=== PATIENT | female | born 1960 | race Caucasian/White ===

== ENCOUNTER → 2017-09-28 06:08 | Outpatient (CLI) | payer MEDICAID, SELFPAY ==
[2017-09-28 06:48] LABS: Absolute Lymphocyte Count 2.14 X10^3/ul (0.83-4.51); Absolute Neutrophil Count 4.5 X10^3/uL (2.0-7.7); Basophil# 0.06 X10^3/uL; Basophil% 0.8 % (0-1); Eosinophil# 0.43 X10^3/uL; Eosinophils% 5.6 % (0-5); Hemoglobin 14.1 g/dl (12.0-15.0); Lymphocyte # 2.14 X10^3/ul (4.0); Lymphocyte % 27.9 % (19-41); Mean Corp Hgb Conc 33.6 g/gl (32-36); Mean Corpuscular Hgb 30.3 pg (27.0-32.0); Mean Corpuscular Volume 90.3 fL (81-99); Mean Platelet Vol. 9.8 fl (6.2-12.0); Monocyte# 0.52 X10^3/uL; Monocyte% 6.8 % (0-10); Neutrophil % 58.5 % (47-70); Platelet Count 302 K/mm3 (150-450); RBC Distribution Width CV 13.1 % (11.6-14.6); Red Blood Count 4.65 M/mm3 (4.2-5.4); White Blood Count 7.7 K/mm3 (4.4-11.0)
[2017-09-28 06:52] LABS: POSITIVE COUNT NO; POSITIVE DIFFERENTIAL NO; POSITIVE MORPHOLOGY NO
[2017-09-28 07:09] LABS: AST(SGOT) 25 U/L (15-37); Alanine Aminotransfer ALT/SGPT 23 U/L (13-56); Albumin, Serum 3.7 g/dL (3.2-5.0); Alkaline Phosphatase 95 U/L (45-117); Anion Gap 8 (5-15); BUN 26 mg/dL (7-18); BUN/Creat Ratio 33.2 RATIO (10-20); Calcium,Total 9.4 mg/dL (8.5-10.1); Chloride 109 mmol/L (98-107); Cholesterol 167 mg/dL (200); Creatinine, Serum 0.78 mg/dL (0.55-1.02); EST Glomerular Filtration Rate 80 mL/min (>60); Est Glom Filt Rate - Afr Amer 97 mL/min (>60); Globulin 3.8 g/dL (2.2-4.2); Glucose 96 mg/dL (74-106); High Density Lipoprotein 48 mg/dL; Potassium 4.1 mmol/L (3.5-5.1); Protein, Total 7.5 g/dL (6.4-8.2); Sodium Level 141 mmol/L (136-145); Triglycerides 119 mg/dL; Very Low Density Lipoprotein 24 mg/dL (5-40)
[2017-09-28 13:48] LABS: Color, Urine Yellow (Yellow); Glucose, Dipstick Normal (Normal); Ketone-Dipstick Negative (Negative); Leukocyte Esterase-Dipstick Negative /ul (Negative); Nitrite-Dipstick Negative (Negative); Occult Blood-Urine Negative /ul (Negative); Protein-Dipstick Negative (Negative); Urine Bilirubin Dipstick Negative (Negative); Urine Clarity Cloudy (Clear); Urine Urobilinogen Normal (Normal)
== END ==
PROVIDERS: Family Provider Family Medicine; PCP Family Medicine; Visit Provider Family Medicine
DX: Z00.00 Encounter for general adult medical examination without abnormal findings (principal); E78.5 Hyperlipidemia, unspecified
CPT/HCPCS: 36415; 80053; 80061; 81002; 85025

== ENCOUNTER → 2017-10-04 12:06 | Outpatient (CLI) | payer MEDICAID, SELFPAY ==
--- NOTE | 2017-10-04 12:09 | BI_ITS ---
MAMMOGRAPHY - BILATERAL SCREENING REASON FOR EXAM: Female, 57 years old. Routine annual screening examination. PERTINENT HISTORY: Personal history of breast cancer. Prior right lumpectomy with the radiation and chemotherapy. TECHNIQUE: Digital bilateral breast rima (3D mammographic acquisition) in the CC and MLO projections. 2-D mediolateral oblique (MLO) and craniocaudad (CC) views of both breasts were obtained. CAD: Full Field Digital Mammography with Computer Added Detection was performed. COMPARISON: Comparison is made with prior examination September 30, 2016. FINDINGS: Breast Composition: There are scattered areas of fibroglandular density. There are no dominant masses or suspicious calcifications. The patient is status post right lumpectomy with deformity and architectural distortion of the mid medial portion of the right breast. This is unchanged. Calcifications are seen at the operative site most likely representing postoperative dystrophic calcification. No other significant abnormalities are identified. BI/SCREENING MAMM (CAD), BILAT IMPRESSION: Stable bilateral screening mammogram. Yearly follow-up mammogram recommended. (A) ASSESSMENT CATEGORY: BIRADS Category 2: Benign. A letter regarding these results will be sent to the patient by the facility within 30 days. Approximately 10% of breast cancers are not detected by mammography. A normal mammogram should not delay biopsy of a clinically suspicious abnormality. [id number] Electronically Signed: Michael Johnson MD at 14:28 EDT Tel [phone], Service support ,
== END ==
PROVIDERS: Family Provider Family Medicine; PCP Family Medicine; Visit Provider Family Medicine
DX: Z12.31 Encounter for screening mammogram for malignant neoplasm of breast (principal); Z85.3 Personal history of malignant neoplasm of breast
CPT/HCPCS: 77063; 77067

== ENCOUNTER → 2018-05-24 07:27 | Outpatient (CLI) | payer MEDICAID, SELFPAY ==
[2018-05-24 08:33] LABS: AST(SGOT) 26 U/L (15-37); Alanine Aminotransfer ALT/SGPT 24 U/L (13-56); Albumin, Serum 3.8 g/dL (3.2-5.0); Alkaline Phosphatase 84 U/L (45-117); Bilirubin, Direct < 0.05 mg/dL (0.00-0.30); Cholesterol 169 mg/dL (200); Globulin 3.7 g/dL (2.2-4.2); High Density Lipoprotein 55 mg/dL; Protein, Total 7.5 g/dL (6.4-8.2); Triglycerides 58 mg/dL; Very Low Density Lipoprotein 12 mg/dL (5-40)
== END ==
PROVIDERS: Family Provider Family Medicine; PCP Family Medicine; Referring Provider Family Medicine; Visit Provider Family Medicine
DX: E78.5 Hyperlipidemia, unspecified (principal)
CPT/HCPCS: 36415; 80061; 80076

== ENCOUNTER → 2018-10-05 14:40 | Outpatient (CLI) | payer MEDICAID, SELFPAY ==
--- NOTE | 2018-10-05 14:44 | BI_ITS ---
MAMMOGRAPHY - BILATERAL SCREENING REASON FOR EXAM: Female, 58 years old. Routine annual screening examination. PERTINENT HISTORY: Personal history of breast cancer. History of prior right lumpectomy with chemotherapy and radiation therapy. TECHNIQUE: Digital bilateral breast carin (3D mammographic acquisition) in the CC and MLO projections. 2-D mediolateral oblique (MLO) and craniocaudad (CC) views of both breasts were obtained. CAD: Full Field Digital Mammography with Computer Added Detection was performed. COMPARISON: Comparison is made with prior study dated October 04, 2017 and October 23, 2012. FINDINGS: Breast Composition: There are scattered areas of fibroglandular density. There are no dominant masses or suspicious calcifications. The patient is status post lumpectomy in the upper medial aspect of the right breast with resultant deformity and architectural distortion and microcalcifications at the biopsy site. These findings are unchanged. No other significant abnormalities are identified. There has been no significant change since the prior study. BI/SCREEN MAMM (CAD) W/CARIN BILAT IMPRESSION: Stable bilateral screening mammogram. Yearly follow-up mammogram recommended. (A) ASSESSMENT CATEGORY: BIRADS Category 2: Benign. A letter regarding these results will be sent to the patient by the facility within 30 days. Approximately 10% of breast cancers are not detected by mammography. A normal mammogram should not delay biopsy of a clinically suspicious abnormality. [id number] Electronically Signed: Michael Johnson, at 8:25 EDT , Service support ,
== END ==
PROVIDERS: Family Provider Family Medicine; PCP Family Medicine; Referring Provider Family Medicine; Visit Provider Family Medicine
DX: Z12.31 Encounter for screening mammogram for malignant neoplasm of breast (principal); Z85.3 Personal history of malignant neoplasm of breast
CPT/HCPCS: 77063; 77067

== ENCOUNTER → 2018-11-21 08:40 | Outpatient (CLI) | payer OTHER, SELFPAY ==
[2018-11-21 09:15] LABS: Basophil# 0.11 X10^3/uL; Basophil% 1.6 % (0-1); Eosinophils% 4.4 % (0-5); Hematocrit 44.1 % (37-47); Hemoglobin 14.5 g/dL (12.0-15.0); Lymphocyte % 27.7 % (19-41); Mean Corp Hgb Conc 32.9 g/dL (32-36); Mean Corpuscular Hgb 29.7 pg (27.0-32.0); Mean Corpuscular Volume 90.2 fL (81-99); Mean Platelet Vol. 9.7 fl (6.2-12.0); Monocyte# 0.57 X10^3/uL; Monocyte% 8.3 % (0-10); NRBC Flagged by Analyzer 0 % (0-5); Neutrophil # 3.96 X10^3/uL (2.7-7.7); Neutrophil % 57.6 % (47-70); Platelet Count 300 K/mm3 (150-450); RBC Distribution Width CV 12.4 % (11.6-14.6); RBC Distribution Width SD 41.2 fl (35.1-43.9); Red Blood Count 4.89 M/mm3 (4.2-5.4); White Blood Count 6.9 K/mm3 (4.4-11.0)
[2018-11-21 09:23] LABS: Color, Urine Yellow (Yellow); Glucose, Dipstick Normal (Normal); Ketone-Dipstick Negative (Negative); Leukocyte Esterase-Dipstick Negative /ul (Negative); Nitrite-Dipstick Positive (Negative); Occult Blood-Urine Negative /ul (Negative); Protein-Dipstick Negative (Negative); Urine Bilirubin Dipstick Negative (Negative); Urine Clarity Clear (Clear); Urine Urobilinogen Normal (Normal); Urine pH 6.5 (5.0 - 8.0)
[2018-11-21 09:46] LABS: ALB/GLOB Ratio 0.9 RATIO (0.9-2.4); AST(SGOT) 22 U/L (15-37); Alanine Aminotransfer ALT/SGPT 22 U/L (13-56); Albumin, Serum 3.7 g/dL (3.2-5.0); Alkaline Phosphatase 89 U/L (45-117); Anion Gap 5 (5-15); BUN 27 mg/dL (7-18); BUN/Creat Ratio 32.3 RATIO (10-20); Calcium,Total 9.1 mg/dL (8.5-10.1); Chloride 108 mmol/L (98-107); Cholesterol 192 mg/dL (200); Creatinine, Serum 0.84 mg/dL (0.55-1.02); EST Glomerular Filtration Rate 74 mL/min (>60); Est Glom Filt Rate - Afr Amer 90 mL/min (>60); Glucose 102 mg/dL (74-106); High Density Lipoprotein 56 mg/dL; Potassium 4.2 mmol/L (3.5-5.1); Protein, Total 7.7 g/dL (6.4-8.2); Sodium Level 138 mmol/L (136-145); Triglycerides 87 mg/dL; Very Low Density Lipoprotein 17 mg/dL (5-40)
== END ==
PROVIDERS: Family Provider Family Medicine; PCP Family Medicine; Visit Provider Family Medicine
DX: Z00.00 Encounter for general adult medical examination without abnormal findings (principal); E78.5 Hyperlipidemia, unspecified
CPT/HCPCS: 36415; 80053; 80061; 81002; 85025

== ENCOUNTER → 2019-05-22 10:46 | Outpatient (CLI) | payer OTHER, SELFPAY ==
[2019-05-22 11:55] LABS: AST(SGOT) 24 U/L (15-37); Alanine Aminotransfer ALT/SGPT 22 U/L (13-56); Albumin, Serum 3.6 g/dL (3.2-5.0); Alkaline Phosphatase 85 U/L (45-117); Bilirubin, Direct 0.06 mg/dL (0.00-0.30); Cholesterol 161 mg/dL (200); Globulin 4.1 g/dL (2.2-4.2); High Density Lipoprotein 56 mg/dL; Protein, Total 7.7 g/dL (6.4-8.2); Triglycerides 73 mg/dL; Very Low Density Lipoprotein 15 mg/dL (5-40)
== END ==
PROVIDERS: PCP Family Medicine; Referring Provider Family Medicine; Visit Provider Family Medicine
DX: E78.5 Hyperlipidemia, unspecified (principal)
CPT/HCPCS: 36415; 80061; 80076

== ENCOUNTER → 2019-10-30 12:26 | Outpatient (CLI) | payer OTHER, SELFPAY ==
--- NOTE | 2019-10-30 12:28 | BI_ITS ---
MAMMOGRAPHY - BILATERAL SCREENING REASON FOR EXAM: Female, 59 years old. Routine annual screening examination. PERTINENT HISTORY: Personal history of breast cancer. Prior right lumpectomy with radiation and chemotherapy. Aunt with breast cancer. TECHNIQUE: Digital bilateral breast carin (3D mammographic acquisition) in the CC and MLO projections. 2-D mediolateral oblique (MLO) and craniocaudad (CC) views of both breasts were obtained. CAD: Full Field Digital Mammography with Computer Added Detection was performed. COMPARISON: Comparison is made with prior examination 10/05/2018 and 10/04/2017. FINDINGS: Breast Composition: There are scattered areas of fibroglandular density. There are no dominant masses or suspicious calcifications. Stable deformity of the right breast with macrocalcifications skin thickening. No other significant abnormalities are identified. There has been no significant change since the prior study. BI/SCREEN MAMM (CAD) W/CARIN BILAT IMPRESSION: Stable bilateral screening mammogram. Yearly follow-up mammogram recommended. (A) ASSESSMENT CATEGORY: BIRADS Category 2: Benign. A letter regarding these results will be sent to the patient by the facility within 30 days. Approximately 10% of breast cancers are not detected by mammography. A normal mammogram should not delay biopsy of a clinically suspicious abnormality. [id number] Electronically Signed: Michael Johnson, at 14:41 EDT , Service support ,
== END ==
PROVIDERS: PCP Family Medicine; Referring Provider Family Medicine; Visit Provider Family Medicine
DX: Z12.31 Encounter for screening mammogram for malignant neoplasm of breast (principal)
CPT/HCPCS: 77063; 77067

== ENCOUNTER → 2020-01-07 06:53 | Outpatient (CLI) | payer OTHER, SELFPAY ==
[2020-01-07 07:20] LABS: Absolute Lymphocyte Count 1.86 X10^3/uL (0.83-4.51); Absolute Neutrophil Count 3.6 X10^3/uL (2.0-7.7); Basophil# 0.09 X10^3/uL; Basophil% 1.4 % (0-1); Eosinophil# 0.25 X10^3/uL; Hematocrit 43.1 % (37-47); Hemoglobin 13.8 g/dL (12.0-15.0); Lymphocyte # 1.86 X10^3/ul (4.0); Lymphocyte % 29.7 % (19-41); Mean Corpuscular Hgb 28.9 pg (27.0-32.0); Mean Corpuscular Volume 90.4 fL (81-99); Mean Platelet Vol. 9.4 fl (6.2-12.0); Monocyte# 0.48 X10^3/uL; Monocyte% 7.7 % (0-10); NRBC Flagged by Analyzer 0 % (0-5); Neutrophil # 3.57 X10^3/uL (2.7-7.7); Platelet Count 292 K/mm3 (150-450); RBC Distribution Width CV 12.5 % (11.6-14.6); RBC Distribution Width SD 41.8 fl (35.1-43.9); Red Blood Count 4.77 M/mm3 (4.2-5.4); White Blood Count 6.3 K/mm3 (4.4-11.0)
[2020-01-07 07:41] LABS: Color, Urine Yellow (Yellow); Glucose, Dipstick Normal (Normal); Ketone-Dipstick Negative (Negative); Leukocyte Esterase-Dipstick 100 /ul (Negative); Nitrite-Dipstick Negative (Negative); Occult Blood-Urine Negative /ul (Negative); Protein-Dipstick 15 mg/dl (Negative); Urine Bilirubin Dipstick Negative (Negative); Urine Clarity Sl. Cloudy (Clear); Urine Urobilinogen Normal (Normal); Urine pH 6.5 (5.0 - 8.0)
[2020-01-07 07:55] LABS: ALB/GLOB Ratio 0.9 RATIO (0.9-2.4); AST(SGOT) 23 U/L (15-37); Alanine Aminotransfer ALT/SGPT 28 U/L (13-56); Albumin, Serum 3.6 g/dL (3.2-5.0); Alkaline Phosphatase 93 U/L (45-117); Anion Gap 6 (5-15); BUN 24 mg/dL (7-18); BUN/Creat Ratio 26.5 RATIO (10-20); Calcium,Total 9.2 mg/dL (8.5-10.1); Chloride 106 mmol/L (98-107); Cholesterol 191 mg/dL (200); Creatinine, Serum 0.91 mg/dL (0.55-1.02); EST Glomerular Filtration Rate 67 mL/min (>60); Est Glom Filt Rate - Afr Amer 81 mL/min (>60); Glucose 108 mg/dL (74-106); High Density Lipoprotein 65 mg/dL; Potassium 4.6 mmol/L (3.5-5.1); Protein, Total 7.6 g/dL (6.4-8.2); Sodium Level 138 mmol/L (136-145); Triglycerides 91 mg/dL; Very Low Density Lipoprotein 18 mg/dL (5-40)
== END ==
PROVIDERS: PCP Family Medicine; Referring Provider Family Medicine; Visit Provider Family Medicine
DX: Z00.00 Encounter for general adult medical examination without abnormal findings (principal); L40.9 Psoriasis, unspecified; E78.5 Hyperlipidemia, unspecified
CPT/HCPCS: 36415; 80053; 80061; 81002; 85025

== ENCOUNTER → 2020-11-06 13:18 | Outpatient (CLI) | payer OTHER, SELFPAY ==
--- NOTE | 2020-11-06 13:24 | BI_ITS ---
MAMMOGRAPHY - BILATERAL SCREENING 3-D TOMOSYNTHESIS REASON FOR EXAM: Female, 60 years old. SCREENING PERTINENT HISTORY: No significant family history. TECHNIQUE: 2-D mammograms and 3-D Tomosynthesis of the breast (s) were performed. CAD was performed. COMPARISON: 10/30/2019 FINDINGS: The breast composition is composed of scattered fibroglandular density. Scattered benign calcifications are seen. No dense spiculated masses or suspicious microcalcifications are identified. No architectural distortion is identified. There is no skin thickening or retraction. Lumpectomy changes in the medial right breast. BI/SCRN MAMM (CAD)W/CARIN BILAT IMPRESSION: No mammographic signs of malignancy. Routine yearly mammograms recommended. ASSESSMENT CATEGORY: BIRADS Category 2: Benign. A letter regarding these results will be sent to the patient by the facility within 30 days. FOLLOW UP RECOMMENDATION: Yearly follow up mammogram recommended. (A) Approximately 10% of breast cancers are not detected by mammography. A normal mammogram should not delay biopsy of a clinically suspicious abnormality. Electronically Signed: Victoriano Dorantes MD at 15:16 EDT Tel , Service support ,
== END ==
PROVIDERS: PCP Family Medicine; Visit Provider Family Medicine
DX: Z12.31 Encounter for screening mammogram for malignant neoplasm of breast (principal)
CPT/HCPCS: 77063; 77067

== ENCOUNTER 2021-03-26 10:39 | Outpatient (CLI) | payer MEDICAID, SELFPAY ==
[2021-03-26 12:02] LABS: Absolute Lymphocyte Count 1.79 X10^3/uL (0.83-4.51); Absolute Neutrophil Count 2.8 X10^3/uL (2.0-7.7); Basophil# 0.08 X10^3/uL; Basophil% 1.5 % (0-1); Eosinophil# 0.24 X10^3/uL; Eosinophils% 4.4 % (0-5); Hematocrit 40.4 % (37-47); Hemoglobin 13.1 g/dL (12.0-15.0); Lymphocyte # 1.79 X10^3/ul (0.83-4.51); Lymphocyte % 32.6 % (19-41); Mean Corp Hgb Conc 32.4 g/dL (32-36); Mean Corpuscular Hgb 28.4 pg (27.0-32.0); Mean Corpuscular Volume 87.4 fL (81-99); Mean Platelet Vol. 9.8 fl (6.2-12.0); Monocyte# 0.57 X10^3/uL; Monocyte% 10.4 % (0-10); NRBC Flagged by Analyzer 0 % (0-5); Neutrophil # 2.79 X10^3/uL (2.7-7.7); Neutrophil % 50.7 % (47-70); Platelet Count 294 K/mm3 (150-450); RBC Distribution Width CV 13.4 % (11.6-14.6); RBC Distribution Width SD 42.9 fl (35.1-43.9); Red Blood Count 4.62 M/mm3 (4.2-5.4); White Blood Count 5.5 K/mm3 (4.4-11.0)
[2021-03-26 12:39] LABS: ALB/GLOB Ratio 0.9 RATIO (0.9-2.4); AST(SGOT) 17 U/L (15-37); Alanine Aminotransfer ALT/SGPT 20 U/L (13-56); Albumin, Serum 3.5 g/dL (3.2-5.0); Alkaline Phosphatase 89 U/L (45-117); Anion Gap 3 (5-15); BUN 26 mg/dL (7-18); BUN/Creat Ratio 36.4 RATIO (10-20); Calcium,Total 8.7 mg/dL (8.5-10.1); Chloride 108 mmol/L (98-107); Cholesterol 188 mg/dL (200); Creatinine, Serum 0.72 mg/dL (0.55-1.02); EST Glomerular Filtration Rate 88 mL/min (>60); Est Glom Filt Rate - Afr Amer 106 mL/min (>60); Globulin 3.9 g/dL (2.2-4.2); Glucose 93 mg/dL (74-106); High Density Lipoprotein 64 mg/dL; Potassium 4.1 mmol/L (3.5-5.1); Protein, Total 7.4 g/dL (6.4-8.2); Sodium Level 137 mmol/L (136-145); Triglycerides 70 mg/dL; Very Low Density Lipoprotein 14 mg/dL (5-40)
== END 2021-03-26 23:59 | disposition short-term general hospital (02) ==
PROVIDERS: PCP Family Medicine; Visit Provider Family Medicine
DX: Z00.00 Encounter for general adult medical examination without abnormal findings (principal); E78.5 Hyperlipidemia, unspecified
CPT/HCPCS: 36415; 80053; 80061; 85025

== ENCOUNTER → 2022-06-08 | Outpatient (CLI) | payer MEDICAID, SELFPAY ==
--- NOTE | 2022-06-08 13:24 | BI_ITS ---
MAMMOGRAPHY - BILATERAL SCREENING REASON FOR EXAM: Female, 62 years old. Routine annual screening examination. PERTINENT HISTORY: Personal history of breast cancer. Prior right lumpectomy with radiation and chemotherapy. Aunt with breast cancer. TECHNIQUE: Digital bilateral breast carin (3D mammographic acquisition) in the CC and MLO projections. 2-D mediolateral oblique (MLO) and craniocaudad (CC) views of both breasts were obtained. CAD: Full Field Digital Mammography with Computer Added Detection was performed. COMPARISON: Comparison is made with prior study dated November 06, 2020 and October 30, 2019. FINDINGS: Breast Composition: There are scattered areas of fibroglandular density. There are no dominant masses or suspicious calcifications. With again, the patient is status post lumpectomy in the deep central slightly medial aspect of the right breast with resultant breast deformity and dystrophic calcifications. Surgical clips are also seen in the right axillary region. No other significant abnormalities are identified. There has been no significant change since the prior study. BI/SCRN MAMM (CAD)W/CARIN BILAT IMPRESSION: Stable bilateral screening mammogram. Yearly follow-up mammogram recommended. (A) ASSESSMENT CATEGORY: BIRADS Category 2: Benign. A letter regarding these results will be sent to the patient by the facility within 30 days. Approximately 10% of breast cancers are not detected by mammography. A normal mammogram should not delay biopsy of a clinically suspicious abnormality. [id number] Electronically Signed: Michael Johnson MD at 15:20 EDT ,
== END | disposition home or self-care (01) ==
PROVIDERS: PCP Family Medicine; Referring Provider Family Medicine; Visit Provider Family Medicine
DX: Z12.31 Encounter for screening mammogram for malignant neoplasm of breast (principal)
CPT/HCPCS: 77063; 77067

== ENCOUNTER → 2023-04-19 | Outpatient (CLI) | payer OTHER, SELFPAY ==
--- NOTE | 2023-04-19 13:22 | US_ITS ---
STUDY: SUPERFICIAL ULTRASOUND - LEFT SUPRACLAVICULAR REGION. REASON FOR EXAM: Female, 62 years old. SUPRACLAVICULAR LYMPHADENOPATHY TECHNIQUE: A superficial ultrasound was performed with real-time and static espinal-scale imaging. COMPARISON: None. FINDINGS: The left supraclavicular region was examined with ultrasound. There are 2, small benign-appearing lymph nodes. The larger lymph node measures 1.3 cm x 0.4 cm x 0.3 cm. US/Head/Neck Soft Tissue IMPRESSION: There are 2, benign-appearing left supraclavicular lymph nodes. The largest lymph node measures 1.3 cm x 0.4 cm x 0.3 cm. Electronically Signed: Michael Johnson MD at 14:27 EST ,
--- OUTSIDE RECORDS SUMMARY | 2023-04-19 15:53 | XMS RPT_ITS | CCD ---
Author Name Unknown Address [address] [place] [address] Organization [facility] Care Team Providers Care Air Traffic Controller Name Role Phone VANESSA GUTIÉRREZ Admitting Unavailable VANESSA GUTIÉRREZ Primary Care Unavailable VANESSA GUTIÉRREZ Attending Unavailable GROVER ALBERTS Admitting Unavailable GROVER ALBERTS Primary Care Unavailable GROVER ALBERTS Consulting Unavailable GROVER ALBERTS Attending Unavailable PROVIDER, UNKNOWN Consulting Unavailable PROVIDER, UNKNOWN Consulting Unavailable Grover Alberts MD Primary Care Provider Grover Alberts MD Primary Care Provider Grover Alberts MD Primary Care Provider Grover Alberts MD Primary Care Provider Juan Lester Unavailable GROVER ALBERTS Attending Unavailab GROVER Wilkerson Primary Care Unavailab GROVER Wilkerson Referring Unavailab GROVER Wilkerson Primary Care Unavailab GROVER Wilkerson Attending Unavailab GROVER Wilkerson Primary Care Unavailab le GROVER ALBERTS Referring Unavailab GROVER Wilkerson Primary Care Unavailab le Medications Current Medications Medication Drug Class(es) Dates Sig (Normalized) Sig (Original) ALPRAZolam 1 mg oral tablet (18 sources) Benzodiazepine Start: 12-14-2022 End: 03-14-2023 take 1 tablet by mouth twice daily ALPRAZolam (XANAX) 1 mg tablet Indications: ALEAH (generalized anxiety disorder) Take 1 tablet by mouth two times a day for 90 days. 60 tablet 2 12/14/2022 03/14/2023 Active Completed/Discontinued Medications Medication Drug Class(es) Dates Sig (Normalized) Sig (Original) [id number] 200 actuat albuterol 0.09 mg/actuat metered dose inhaler (14 sources) beta2-Adrenergic Agonist Start: 06-07-2022 take 2 puff(s) by inhalation every four hours as needed for wheezing albuterol HFA (VENTOLIN HFA) 90 mcg/actuation inhaler Indications: Wheezing , Acute bronchitis, unspecified organism Inhale 2 Puffs as instructed every 4 hours as needed for wheezing/shortness of breath. 3 Each 3 06/07/2022 Active Problems Active Problems Problem Classification Problem Date Documented Da te Episodic/Chronic Anxiety disorders (20 sources) Generalized anxiety disorder; Translations: [Generalized anxiety disorder] Onset: 03-10-2017 03-10-2017 Chronic Cancer of breast (20 sources) Malignant neoplasm of female breast; Translations: [Malignant neoplasm of unspecified site of unspecified female breast] Onset: 02-16-2005 02-16-2005 Chronic Disorders of lipid metabolism (20 sources) Hyperlipidemia; Translations: [Hyperlipidemia, unspecified] Onset: 03-29-2014 03-29-2014 Chronic Immunizations and screening for infectious disease (1 source) Encounter for immunization; Translations: [Encounter for immunization] Onset: 03-16-2023 Episodic Lymphadenitis (1 source) Localized enlarged lymph nodes; Translations: [Supraclavicular lymphadenopathy] Onset: 03-16-2023 Episodic Mood disorders (17 sources) Depressive disorder; Translations: [Depression] Onset: 11-07-2009 11-07-2009 Chronic Osteoarthritis (14 sources) Arthritis; Translations: [Unspecified osteoarthritis, unspecified site] Onset: 03-29-2014 03-29-2014 Chronic Osteoporosis (14 sources) Osteoporosis; Translations: [Age-related osteoporosis without current pathological fracture] Onset: 11-07-2009 11-07-2009 Chronic Other inflammatory condition of skin (14 sources) Psoriasis; Translations: [Psoriasis, unspecified] Onset: 11-07-2009 11-07-2009 Chronic Other screening for suspected conditions (not mental disorders or infectious disease) (20 sources) Patient encounter status; Translations: [Encounter for screening mammogram for malignant neoplasm of breast] Onset: 09-18-2018 07-23-2021 Episodic Residual codes; unclassified (1 source) Tobacco user; Translations: [Tobacco use] 09-17-2022 Episodic Residual codes; unclassified (1 source) Tobacco use; Translations: [Tobacco abuse] Onset: 03-16-2023 Episodic Past or Other Problems Problem Classification Problem Date Documented Date Episodic/Chronic Noninfectious gastroenteritis (14 sources) Gastroenteritis; Translations: [Noninfective gastroenteritis and colitis, unspecified] Onset: 2 07-23-2021 Episodic Nonmalignant breast conditions (14 sources) Mammographic microcalcification of breast; Translations: [Mammographic microcalcification found on diagnostic imaging of breast] Onset: 7 05-05-2006 Episodic Other connective tissue disease (14 sources) Pain of left calf; Translations: [Pain in left lower leg] Onset: 1 07-23-2021 Episodic Residual codes; unclassified (14 sources) Menopause present; Translations: [Asymptomatic menopausal state] Onset: 0 11-07-2009 Episodic Residual codes; unclassified (14 sources) Insomnia; Translations: [Insomnia, unspecified] Onset: 0 11-07-2009 Episodic Results Test Name Value Interpretation Reference Range Facil ity Vital Signs Date Time Vital Sign Value Performing Clinician Faci lity 09-13-2022 09:33-0400 Body height 162.6 cm Grover Alberts MD Work Phone: [facility] 09-13-2022 09:33-0400 Body temperature 97.2 [degF] Grover Alberts MD Work Phone: [facility] 09-13-2022 09:33-0400 Body weight 87.09 kg Grover Alberts MD Work Phone: [facility] 09-13-2022 09:33-0400 Diastolic blood pressure 80 mm[Hg] Grover Alberts MD Work Phone: [facility] 09-13-2022 09:33-0400 Heart rate 74 /min Grover Alberts MD Work Phone: [facility] 09-13-2022 09:33-0400 Respiratory rate 16 /min Grover Alberts MD Work Phone: [facility] 09-13-2022 09:33-0400 SaO2% (BldA) [Mass fraction] 98 % Grover Alberts MD Work Phone: [facility] 09-13-2022 09:33-0400 Systolic blood pressure 134 mm[Hg] Grover Alberts MD Work Phone: [facility] 03-24-2022 11:55-0500 Body height 162.6 cm Grover Alberts MD Work Phone: [facility] 03-24-2022 11:55-0500 Body temperature 97.59 [degF] Grover Alberts MD Work Phone: [facility] 03-24-2022 11:55-0500 Body weight 87.45 kg Grover Alberts MD Work Phone: [facility] 03-24-2022 11:55-0500 Diastolic blood pressure 78 mm[Hg] Grover Alberts MD Work Phone: [facility] 03-24-2022 11:55-0500 Heart rate 78 /min Grover Alberts MD Work Phone: [facility] 03-24-2022 11:55-0500 Respiratory rate 18 /min Grover Alberts MD Work Phone: [facility] 03-24-2022 11:55-0500 SaO2% (BldA) [Mass fraction] 98 % Grover Alberts MD Work Phone: [facility] 03-24-2022 11:55-0500 Systolic blood pressure 130 mm[Hg] Grover Alberts MD Work Phone: [facility] 09-16-2021 14:12-0400 Body height 162.6 cm Grover Alberts MD Work Phone: [facility] 09-16-2021 14:12-0400 Body temperature 97.5 [degF] Grover Alberts MD Work Phone: [facility] 09-16-2021 14:12-0400 Body weight 84.46 kg Grover Alberts MD Work Phone: [facility] 09-16-2021 14:12-0400 Diastolic blood pressure 80 mm[Hg] Grover Alberts MD Work Phone: [facility] 09-16-2021 14:12-0400 Heart rate 86 /min Grover Alberts MD Work Phone: [facility] 09-16-2021 14:12-0400 Respiratory rate 14 /min Grover Alberts MD Work Phone: [facility] 09-16-2021 14:12-0400 SaO2% (BldA) [Mass fraction] 97 % Grover Alberts MD Work Phone: [facility] 09-16-2021 14:12-0400 Systolic blood pressure 128 mm[Hg] Grover Alberts MD Work Phone: [facility] 03-11-2021 12:33-0500 Body temperature 96.6 [degF] Grover Alberts MD Work Phone: [facility] 03-11-2021 12:33-0500 Body weight 83.01 kg Grover Alberts MD Work Phone: [facility] 03-11-2021 12:33-0500 Diastolic blood pressure 86 mm[Hg] Grover Alberts MD Work Phone: [facility] 03-11-2021 12:33-0500 Heart rate 74 /min Grover Alberts MD Work Phone: [facility] 03-11-2021 12:33-0500 Respiratory rate 14 /min Grover Alberts MD Work Phone: [facility] 03-11-2021 12:33-0500 SaO2% (BldA) [Mass fraction] 97 % Grover Alberts MD Work Phone: [facility] 03-11-2021 12:33-0500 Systolic blood pressure 132 mm[Hg] Grover Alberts MD Work Phone: [facility] 03-11-2021 12:16-0500 Body temperature 96.6 [degF] Grover Alberts MD Work Phone: [facility] 03-11-2021 12:16-0500 Body weight 83.01 kg Grover Alberts MD Work Phone: [facility] 03-11-2021 12:16-0500 Diastolic blood pressure 86 mm[Hg] Grover Alberts MD Work Phone: [facility] 03-11-2021 12:16-0500 Heart rate 74 /min Grover Alberts MD Work Phone: [facility] 03-11-2021 12:16-0500 Respiratory rate 14 /min Grover Alberts MD Work Phone: [facility] 03-11-2021 12:16-0500 SaO2% (BldA) [Mass fraction] 97 % Grover Alberts MD Work Phone: [facility] 03-11-2021 12:16-0500 Systolic blood pressure 132 mm[Hg] Grover Alberts MD Work Phone: [facility] Encounters Encounter Date Encounter Type Care Provider Facility Start: 03-16-2023 End: 03-17-2023 ambulatory GROVER ALBERTS Facility:[id number] Start: 03-16-2023 Encounter for genera l adult medical examination without abnormal findings GROVER ALBERTS [facility] Start: 12-13-2022 Refill Grover Calderon MD Work Phone: [facility] [place] Procedures Date Procedure Procedure Detail Performing Clinician Start: 06-08-2022 Mammography Grover coleman MD Work Phone: Start: 03-24-2022 INFLUENZA VACCINE QUADRIVALENT 6 MO - 64 YRS IM Grover Alberts MD Work Phone: Start: 03-24-2022 Lipid 1996 panel - S jack or Plasma Grover Alberts MD Work Phone: Start: 10-04-2017 Mammography Grover coleman MD Work Phone: Start: 01-21-2010 Colonoscopy Grovre coleman MD Work Phone: Plan of Treatment Date Care Activity Detail Author Start: 03-24-2027 Lipid 1996 panel - Serum or Plasma Lipid Screening [facility] Start: 03-24-2027 LIPID SCREEN LIPID SCREEN [facility] Start: 09-13-2025 DIABETES SCREEN DIABETES SCREEN [facility] Start: 09-13-2025 Diabetes Screening Diabetes Screening [facility] Start: 08-21-2025 Urine microalbumin profile [facility] Start: 03-24-2025 DIABETES SCREEN DIABETES SCREEN [facility] Start: 06-09-2023 Mammography [facility] Start: 11-05-2022 Covid-19 Vaccine () Covid-19 Vaccine () [facility] Start: 11-05-2022 Influenza vaccination [facility] Start: 09-13-2022 End: 11-13-2022 Lipid 1996 panel - Serum or Plasma LIPID PANEL BASIC Lab Routine Mixed hyperlipidemia Expected: 09/13/2022, Expires: 11/13/2022 [facility] Work Phone: Immunizations Immunization Date Immunization Notes Care Provider Soledad ríos 03-24-2022 influenza, injectabl e, quadrivalent, contains preservative Grover Alberts MD Work Phone: [facility] 03-24-2022 influenza virus vacc ine, unspecified formulation Grover Alberts MD Work Phone: [facility] 01-01-2021 influenza, injectabl e, quadrivalent, preservative free Lor Wadsworth PA-C Work Phone: [facility] 12-05-2019 influenza, injectabl e, quadrivalent, preservative free Grover Alberts MD Work Phone: [facility] 03-10-2017 influenza, injectabl e, quadrivalent, contains preservative Grover Alberts MD Work Phone: [facility] 01-01-2016 influenza, injectabl e, quadrivalent, contains preservative Grover Alberts MD Work Phone: [facility] 08-22-2015 tetanus toxoid, redu carline diphtheria toxoid, and acellular pertussis vaccine, adsorbed Grover Alberts MD Work Phone: [facility] 02-20-2015 influenza, injectabl e, quadrivalent, contains preservative Grover Alberts MD Work Phone: [facility] 12-25-2012 pneumococcal polysaccharide vaccine, 23 valent Grover Alberts MD Work Phone: [facility] 01-05-2008 influenza virus vacc ine, unspecified formulation Grover Alberts MD Work Phone: [facility] Work Phone: Payers Date Payer Category Payer Unknown [id number] 2022 Unknown EMERALD CORBIN HI X [id number] 2022-Present [phone] [address] [address] [place] [address] O [id number] 2022 Unknown [id number] 2013 Medicaid [employer] [facility] MEDICAID [id number] 2013-Present [phone] [address] [place] [address] Medicaid [id number] 1960 Unknown [id number] Social History Date Type Detail Facility Start: 02-09-2012 End: 03-24-2022 Tobacco smoking status MOIS Smokes tobacco daily [facility] History of tobacco use Cigarette Smoker [facility] Start: 07-23-2021 End: 09-13-2022 Alcohol intake Current non-drinker of alcohol (finding) [facility] Start: 1960 Sex Assigned At Not on file [facility] Start: 09-16-2021 End: 03-24-2022 History SDOH Alcohol Frequency 1 [facility] Start: 09-16-2021 End: 03-24-2022 History SDOH Social Connections Phone 5 [facility] Start: 09-16-2021 End: 03-24-2022 History SDOH Social Connections Membership 2 [facility] Start: 09-16-2021 End: 03-24-2022 History SDOH Physical Activity DPW 7 [facility] Start: 09-16-2021 End: 03-24-2022 History SDOH Physical Activity MPS 3 [facility] Start: 09-06-2021 End: 09-16-2021 Exposure to SARS-CoV-2 (event) Not sure [facility] Start: 02-09-2012 End: 02-10-2020 Cigarettes smoked current (pack per day) - Reported 1 [facility] Start: 02-09-2012 End: 03-24-2022 Tobacco use and exposure Smokeless tobacco non-user [facility] Start: 03-24-2022 History SDOH Alcohol Std Drinks 0 [facility] Start: 02-10-2020 End: 03-24-2022 Social connection and isolation panel [facility] Do you belong to any clubs or organizations such as anglican groups, unions, fraternal or athletic groups, or school groups? No [facility] Are you now , , , , never or living with a partner? [facility] How often to you hav e a drink containing alcohol? Never [facility] How many standard dr inks containing alcohol do you have on a typical day? Patient does not drink [facility] How hard is it for y ou to pay for the very basics like food, housing, medical care, and heating Somewhat hard [facility] Do you feel stress - tense, restless, nervous, or anxious, or unable to sleep at night because your mind is troubled all the time - these days [OSQ] Not at all [facility] (I/We) worried wheth er (my/our) food would run out before (I/we) got money to buy more. Never true [facility] Clinical Notes 12-30-2006 to 03-16-2023 Telephone Encounter - Jennifer Monroy LPN - 12/13/2022 1:12 PM EDTTelephone Encounter - Janelle Poole - 12/13/2022 10:03 AM EDTTelephone Encounter - Jennifer Monroy LPN - 11/17/2022 2:07 PM EDT Note Date & Type Note Facility 03-16-2023 Note HNO ID: [id number] Author: GROVER ALBERTS MD Service: ? Author Type: Physician Type: Progress Notes Filed: 03/16/2023 11:22 Note Text: Subjective Ashley Correa is a 62 year old female. Ashley presents today for her annual wellness visit. Review of Systems Constitutional: Negative. HENT: Negative. Eyes: Negative. Respiratory: Negative. Cardiovascular: Negative. Gastrointestinal: Negative. Endocrine: Negative. Genitourinary: Negative. Musculoskeletal: Negative. Skin: Negative. Allergic/Immunologic: Negative. Neurological: Negative. Hematological: Negative. Psychiatric/Behavioral: Negative. PAST SURGICAL HISTORY Procedure Laterality Date CHOLECYSTECTOMY COLONOSCOPY FLX DX W/COLLJ SPEC WHEN PFRMD 01/21/10 EXC CYST/ABERRANT BREAST TISSUE OPEN / LESION 10/21/2006 non healing biopsy site PAST SURGICAL HISTORY OF 10/06/2002 lumpectomy + axillary dissection PAST MEDICAL HISTORY Diagnosis Date Anxiety Depression Hyperlipidemia Internal hemorrhoids without mention of complication Malignant neoplasm of breast (female), unspecified site Breast cancer - right 2002 - lobular carcinoma Psoriasis Tobacco use FAMILY HISTORY Problem Relation Age of Onset Hypertension Mother Arthritis Mother other (Atrial Fib) Mother other (encephalitis [Other]) Father Stroke Father other (heart attack [Other]) Brother Social History Tobacco Use Smoking status: Every Day Packs/day: 1.00 Years: 30.00 Additional pack years: 0.00 Total pack years: 30.00 Types: Cigarettes Smokeless tobacco: Never Vaping Use Vaping Use: Never used Substance Use Topics Alcohol use: No Drug use: Yes Frequency: 1.0 times per week Types: Marijuana ALLERGIES No Known Allergies MEDICATIONS: ALPRAZolam (XANAX) 1 mg tablet Take 1 tablet by mouth two times a day for 90 days. citalopram (CELEXA) 20 mg tablet take 1 tablet by mouth once daily albuterol HFA (VENTOLIN HFA) 90 mcg/actuation inhaler Inhale 2 Puffs as instructed every 4 hours as needed for wheezing/shortness of breath. rosuvastatin (CRESTOR) 5 mg tablet Take 1 tablet by mouth once daily. Allergies, past surgical history, family history and past medical history were reviewed per this encounter. Medications were reviewed and verified. Objective BP 138/82 (BP Site: Left Arm, BP Position: Sitting, BP Cuff Size: Regular Adult) Pulse 64 Temp 36.4 ?C (97.6 ?F) (Temporal) Resp 18 Ht 162.6 cm (5' 4 ) Wt 88 kg (194 lb) SpO2 98% BMI 33.30 kg/m? Physical Exam Vitals reviewed. Constitutional: Appearance: Normal appearance. HENT: Head: Normocephalic and atraumatic. Nose: Nose normal. Eyes: Extraocular Movements: Extraocular movements intact. Pupils: Pupils are equal, round, and reactive to light. Neck: Comments: Adenopathy to the left supraclavicular region Cardiovascular: Rate and Rhythm: Normal rate and regular rhythm. Pulmonary: Effort: Pulmonary effort is normal. Breath sounds: Normal breath sounds. Abdominal: General: Bowel sounds are normal. Palpations: Abdomen is soft. Musculoskeletal: General: Normal range of motion. Cervical back: Normal range of motion and neck supple. Skin: General: Skin is warm and dry. Capillary Refill: Capillary refill takes less than 2 seconds. Neurological: General: No focal deficit present. Mental Status: She is alert and oriented to person, place, and time. Mental status is at baseline. Psychiatric: Mood and Affect: Mood normal. Behavior: Behavior normal. Assessment and Plan Encounter Diagnosis ICD-10-CM 1. Wellness examination Z00.00 COMP METABOLIC PANEL 2. Encounter for immunization Z23 INFLUENZA VACCINE, AGE 6 MO - 64 YR, QUADRIVALENT (AFLURIA, FLULAVAL, FLUZONE) 3. Encounter for screening mammogram for breast cancer Z12.31 ALEM SCREENING 4. Pure hypercholesterolemia E78.00 COMP METABOLIC PANEL LIPID PANEL BASIC 5. Screening for deficiency anemia Z13.0 CBC + DIFF 6. Screening for colon cancer Z12.11 COLOGUARD 7. Tobacco abuse Z72.0 8. Supraclavicular lymphadenopathy R59.0 US HEAD/NECK SOFT TISSUE OTHER All open preventative health maintenance topics discussed with patient in detail. This includes risks and benefits regarding vaccines, cancer screening, healthy life style, and diet. Obtain us of neck. Due to supraclavicular lap. Grover Alberts MD [facility] 03-16-2023 Note HNO ID: [id number] Author: JENNIFER MONROY LPN Service: ? Author Type: LICENSED NURSE Type: Progress Notes Filed: 03/16/2023 11:22 Note Text: DUE HEALTH MAINTENANCE HIV Screening declined Lung Cancer Screening Shingrix Vaccine(1 of 2) declined Pneumococcal Vaccine(2 of 2 - PCV) RSV Vaccine(1 - 1-dose 60+ series) declined Colorectal Cancer Screening - [facility] [place]. Patient is due stated was 13 years ago Pap Testing declined HPV Testing declined Influenza Vaccine(1) ordered Covid-19 Vaccine(2022-24 season) declined Mammogram Screening ordered No refills needed Jennifer Monroy LPN March 16, 2023 10:39 AM [facility] 12-13-2022 Miscellaneous Notes Last Office Visit: 09-13-2022 Next Scheduled Office Visit: 03-16-2023 Requested Prescriptions Pending Prescriptions Disp Refills ALPRAZolam (XANAX) 1 mg tablet 60 tablet 2 Sig: Take 1 tablet by mouth two times a day for 90 days. Jennifer Monroy LPN December 13, 2022 3:43 PM Summary: Requesting Xanax Patient called asking for Alprazolam? Patient is on Citalopram? But is not on the Alprazolam currently. documented in this encounter [facility] 11-17-2022 Miscellaneous Notes Last Office Visit: 09-13-2022 Next Scheduled Office Visit: 03-16-2023 Requested Prescriptions Pending Prescriptions Disp Refills citalopram (CELEXA) 20 mg tablet [Pharmacy Med Name: citalopram 20 mg tablet] 30 tablet 5 Sig: take 1 tablet by mouth once daily Jennifer Monroy LPN November 17, 2022 2:08 PM documented in this encounter [facility] 09-17-2022 Note Patient Outreach (MARION DAVENPORT) ASHLEY CORREA ([id number]) 1960 F Date Time Provider Department 09/17/22 [facility] [place] During your visit today, we recorded the following information about you: Allergies As of Date: 09/17/2022 (No Known Allergies) Date Reviewed: 09/13/2022 Reviewed by: Kisha Ojeda LPN - Fully Assessed Visit Diagnosis:Tobacco abuse [Z72.0] Order(s):CONSULT LUNG CANCER SCREENING CLINIC [3721718] Order #: [id number]: 1 FUTURE Prescriptions as of 09/20/2022 - ALPRAZolam (XANAX) 1 mg tablet Take 1 tablet by mouth twice daily for 90 days. - albuterol HFA (VENTOLIN HFA) 90 mcg/actuation inhaler Inhale 2 Puffs as instructed every 4 hours as needed for wheezing/shortness of breath. - citalopram (CELEXA) 20 mg tablet Take 1 tablet by mouth once daily. - rosuvastatin (CRESTOR) 5 mg tablet Take 1 tablet by mouth once daily. - Clobetasol Propionate (TEMOVATE) 0.05 % external solution clobetasol 0.05% solution Problem List As Of Date 09/17/2022 Noted Resolved MALIGN NEOPL BREAST NOS [C50.919] 02/16/2005 MAMMOGRAPHIC MICROCALCIFICATION [R92.0] 05/05/2006 Open wound of breast, complicated [S21.009A] 12/30/2006 10/19/2012 Menopause [Z78.0] 11/07/2009 Osteoporosis [M81.0] 11/07/2009 Psoriasis [L40.9] 11/07/2009 Insomnia [G47.00] 11/07/2009 Depression [F32.A] 11/07/2009 Arthritis [M19.90] 03/29/2014 Hyperlipidemia [E78.5] 03/29/2014 ALEAH (generalized anxiety disorder) [F41.1] 03/10/2017 Anxiety [F41.9] 03/18/2017 Inflammation of stomach and intestine [K52.9] 06/02/2021 Pain of left calf [M79.662] 08/13/2020 Well adult health check [Z00.00] 09/12/2017 Visit for screening mammogram [Z12.31] 09/18/2018 Malignant neoplasm of breast (HCC) [C50.919] 07/23/2021 Encounter Status:Closed by EPIC, PRODUSER on 09/20/22 [facility] 09-13-2022 Note HNO ID: [id number] Author: Grover Alberts MD Service: ? Author Type: Physician Type: Progress Notes Filed: 09/13/2022 10:21 AM Note Text: This note was created using [employer]. Subjective Ashley Correa is a 62 year old female. Ashley presents today for follow-up for multiple medical problems. See list. Her chronic medical problems are stable. She has no new complaints today. She is feeling well. Review of Systems Constitutional: Negative. HENT: Negative. Eyes: Negative. Respiratory: Negative. Cardiovascular: Negative. Gastrointestinal: Negative. Endocrine: Negative. Genitourinary: Negative. Musculoskeletal: Negative. Skin: Negative. Allergic/Immunologic: Negative. Neurological: Negative. Hematological: Negative. Psychiatric/Behavioral: Negative. Objective BP 134/80 (BP Site: Left Arm, BP Position: Sitting, BP Cuff Size: Large Adult) Pulse 74 Temp 36.2 ?C (97.2 ?F) (Temporal) Resp 16 Ht 162.6 cm (5' 4 ) Wt 87.1 kg (192 lb) SpO2 98% BMI 32.96 kg/m? Physical Exam Vitals reviewed. Constitutional: Appearance: Normal appearance. HENT: Head: Normocephalic and atraumatic. Nose: Nose normal. Eyes: Extraocular Movements: Extraocular movements intact. Pupils: Pupils are equal, round, and reactive to light. Cardiovascular: Rate and Rhythm: Normal rate and regular rhythm. Pulmonary: Effort: Pulmonary effort is normal. Breath sounds: Normal breath sounds. Abdominal: General: Bowel sounds are normal. Palpations: Abdomen is soft. Musculoskeletal: General: Normal range of motion. Cervical back: Normal range of motion and neck supple. Skin: General: Skin is warm and dry. Capillary Refill: Capillary refill takes less than 2 seconds. Neurological: General: No focal deficit present. Mental Status: She is alert and oriented to person, place, and time. Mental status is at baseline. Psychiatric: Mood and Affect: Mood normal. Behavior: Behavior normal. Assessment and Plan Encounter Diagnosis ICD-10-CM 1. Mixed hyperlipidemia E78.2 LIPID PANEL BASIC 2. ALEAH (generalized anxiety disorder) F41.1 ALPRAZolam (XANAX) 1 mg tablet 3. Lipid screening Z13.220 4. Screening for deficiency anemia Z13.0 CBC + DIFF 5. Wellness examination Z00.00 COMP METABOLIC PANEL Continue present medications. Labs as above. Grover Alberts MD [facility] 09-13-2022 Note HNO ID: [id number] Author: Kisha Ojeda LPN Service: ? Author Type: LICENSED NURSE Type: Progress Notes Filed: 09/13/2022 10:21 AM Note Text: Patient is in office today for 6 month exam. Patient denies any concerns at this time. Kisha Ojeda LPN September 13, 2022 9:37 AM [facility] 09-13-2022 History of Present illness Narrative This note was created using [employer]. Subjective Ashley Correa is a 62 year old female. Ashley presents today for follow-up for multiple medical problems. See list. Her chronic medical problems are stable. She has no new complaints today. She is feeling well. Review of Systems Constitutional: Negative. HENT: Negative. Eyes: Negative. Respiratory: Negative. Cardiovascular: Negative. Gastrointestinal: Negative. Endocrine: Negative. Genitourinary: Negative. Musculoskeletal: Negative. Skin: Negative. Allergic/Immunologic: Negative. Neurological: Negative. Hematological: Negative. Psychiatric/Behavioral: Negative. Objective BP 134/80 (BP Site: Left Arm, BP Position: Sitting, BP Cuff Size: Large Adult) Pulse 74 Temp 36.2 C (97.2 F) (Temporal) Resp 16 Ht 162.6 cm (5' 4 ) Wt 87.1 kg (192 lb) SpO2 98% BMI 32.96 kg/m Physical Exam Vitals reviewed. Constitutional: Appearance: Normal appearance. HENT: Head: Normocephalic and atraumatic. Nose: Nose normal. Eyes: Extraocular Movements: Extraocular movements intact. Pupils: Pupils are equal, round, and reactive to light. Cardiovascular: Rate and Rhythm: Normal rate and regular rhythm. Pulmonary: Effort: Pulmonary effort is normal. Breath sounds: Normal breath sounds. Abdominal: General: Bowel sounds are normal. Palpations: Abdomen is soft. Musculoskeletal: General: Normal range of motion. Cervical back: Normal range of motion and neck supple. Skin: General: Skin is warm and dry. Capillary Refill: Capillary refill takes less than 2 seconds. Neurological: General: No focal deficit present. Mental Status: She is alert and oriented to person, place, and time. Mental status is at baseline. Psychiatric: Mood and Affect: Mood normal. Behavior: Behavior normal. Assessment and Plan Encounter Diagnosis ICD-10-CM 1. Mixed hyperlipidemia E78.2 LIPID PANEL BASIC 2. ALEAH (generalized anxiety disorder) F41.1 ALPRAZolam (XANAX) 1 mg tablet 3. Lipid screening Z13.220 4. Screening for deficiency anemia Z13.0 CBC + DIFF 5. Wellness examination Z00.00 COMP METABOLIC PANEL Continue present medications. Labs as above. Grover Alberts MD Patient is in office today for 6 month exam. Patient denies any concerns at this time. Kisha Ojeda LPN September 13, 2022 9:37 AM documented in this encounter [facility] 06-23-2022 Miscellaneous Notes Last Office Visit: 03-24-2022 Next Scheduled Office Visit: None scheduled Requested Prescriptions Pending Prescriptions Disp Refills ALPRAZolam (XANAX) 1 mg tablet 60 tablet 2 Sig: Take 1 tablet by mouth twice daily for 90 days. Jennifer Monroy LPN June 23, 2022 2:51 PM documented in this encounter [facility] 05-10-2022 Miscellaneous Notes Patient has been identified by name and date of : Yes Requested Prescriptions Pending Prescriptions Disp Refills citalopram (CELEXA) 20 mg tablet 30 tablet 5 Sig: Take 1 tablet by mouth once daily. rosuvastatin (CRESTOR) 5 mg tablet 30 tablet 11 Sig: Take 1 tablet by mouth once daily. RX INSTRUCTIONS: Patient aware RX will be sent to pharmacy. No need to nofity patient. Controlled medication - must be call in. Ramona Mallory MA documented in this encounter [facility] 04-20-2022 Miscellaneous Notes Returned patient's call regarding mammogram order. Message left for patient to call office at her earliest convenience. Clarification needed on where patient is requesting her mammogram order to be sent. Will attempt to contact patient again. Kisha Ojeda LPN April 20, 2022 10:26 AM documented in this encounter [facility] 03-24-2022 History of Present illness Narrative This note was created using [employer]. Subjective Ashley Correa is a 61 year old female. Ashley presents today for for her wellness exam. Review of Systems Constitutional: Negative. HENT: Negative. Eyes: Negative. Respiratory: Negative. Cardiovascular: Negative. Gastrointestinal: Negative. Endocrine: Negative. Genitourinary: Negative. Musculoskeletal: Negative. Skin: Negative. Allergic/Immunologic: Negative. Neurological: Negative. Hematological: Negative. Psychiatric/Behavioral: Negative. Objective BP 130/78 (BP Site: Left Arm, BP Position: Sitting, BP Cuff Size: Large Adult) Pulse 78 Temp 36.4 C (97.6 F) (Temporal) Resp 18 Ht 162.6 cm (5' 4 ) Wt 87.5 kg (192 lb 12.8 oz) SpO2 98% BMI 33.09 kg/m Physical Exam Vitals reviewed. Constitutional: Appearance: Normal appearance. HENT: Head: Normocephalic and atraumatic. Nose: Nose normal. Eyes: Extraocular Movements: Extraocular movements intact. Pupils: Pupils are equal, round, and reactive to light. Cardiovascular: Rate and Rhythm: Normal rate and regular rhythm. Pulmonary: Effort: Pulmonary effort is normal. Breath sounds: Normal breath sounds. Abdominal: General: Bowel sounds are normal. Palpations: Abdomen is soft. Musculoskeletal: General: Normal range of motion. Cervical back: Normal range of motion and neck supple. Skin: General: Skin is warm and dry. Capillary Refill: Capillary refill takes less than 2 seconds. Neurological: General: No focal deficit present. Mental Status: She is alert and oriented to person, place, and time. Mental status is at baseline. Psychiatric: Mood and Affect: Mood normal. Behavior: Behavior normal. Assessment and Plan Ashley was seen today for wellness. Diagnoses and all orders for this visit: Encounter for screening mammogram for breast cancer - ALEM SCREENING; Future ALEAH (generalized anxiety disorder) - ALPRAZolam (XANAX) 1 mg tablet; Take 1 tablet by mouth twice daily for 90 days. Pure hypercholesterolemia - COMP METABOLIC PANEL; Future - LIPID PANEL BASIC; Future Wellness examination - COMP METABOLIC PANEL; Future Lipid screening Screening for deficiency anemia - CBC + DIFF; Future Other orders - INFLUENZA VACCINE QUADRIVALENT 6 MO - 64 YRS IM Patient is in office today for wellness exam. No complaints or concerns at this time. Requesting mammogram and flu vaccine Flu vaccine administered left deltoid Jennifer Monroy LPN March 24, 2022 11:54 AM documented in this encounter [facility] 12-31-2021 Miscellaneous Notes Oarrs checked and is good. Script sent. Last office visit with Dr. Alberts 09-16-2021 Requested Prescriptions Pending Prescriptions Disp Refills ALPRAZolam (XANAX) 1 mg tablet 60 tablet 2 Sig: Take 1 tablet by mouth twice daily for 90 days. Jennifer Monroy LPN December 31, 2021 11:06 AM documented in this encounter [facility] 12-31-2021 Miscellaneous Notes Summary: Refill Alprazolam 1mg po bid [facility] in [place] Patient called refill line on Tuesday12/29/21 and no response She is currently out of this medication documented in this encounter [facility] 09-19-2021 History of Present illness Narrative This note was created using [employer]. Subjective Ashley Correa is a 61 year old female. Patient presents today for follow-up for multiple medical problems. See list. Her chronic medical problems are stable. Her mood and anxiety improved on her current regimen. She has no new complaints today. HPI Review of Systems Constitutional: Negative. HENT: Negative. Eyes: Negative. Respiratory: Negative. Cardiovascular: Negative. Gastrointestinal: Negative. Endocrine: Negative. Genitourinary: Negative. Musculoskeletal: Negative. Skin: Negative. Allergic/Immunologic: Negative. Neurological: Negative. Hematological: Negative. Psychiatric/Behavioral: Negative. Objective BP 128/80 (BP Site: Left Arm, BP Cuff Size: Large Adult) Pulse 86 Temp 36.4 C (97.5 F) (Temporal) Resp 14 Ht 162.6 cm (5' 4 ) Wt 84.5 kg (186 lb 3.2 oz) SpO2 97% BMI 31.96 kg/m Physical Exam Vitals reviewed. Constitutional: Appearance: Normal appearance. HENT: Head: Normocephalic and atraumatic. Nose: Nose normal. Eyes: Extraocular Movements: Extraocular movements intact. Pupils: Pupils are equal, round, and reactive to light. Cardiovascular: Rate and Rhythm: Normal rate and regular rhythm. Pulmonary: Effort: Pulmonary effort is normal. Breath sounds: Normal breath sounds. Abdominal: General: Bowel sounds are normal. Palpations: Abdomen is soft. Musculoskeletal: General: Normal range of motion. Cervical back: Normal range of motion and neck supple. Skin: General: Skin is warm and dry. Capillary Refill: Capillary refill takes less than 2 seconds. Neurological: General: No focal deficit present. Mental Status: She is alert and oriented to person, place, and time. Mental status is at baseline. Psychiatric: Mood and Affect: Mood normal. Behavior: Behavior normal. Assessment and Plan Ashley was seen today for 6 month exam. Diagnoses and all orders for this visit: ALEAH (generalized anxiety disorder) - ALPRAZolam (XANAX) 1 mg tablet; Take 1 tablet by mouth twice daily for 30 days. Anxiety - citalopram (CELEXA) 20 mg tablet; Take 1 tablet by mouth once daily. Depression, unspecified depression type - citalopram (CELEXA) 20 mg tablet; Take 1 tablet by mouth once daily. Mixed hyperlipidemia - rosuvastatin (CRESTOR) 5 mg tablet; Take 1 tablet by mouth once daily. - LIPID PANEL BASIC; Future - HEPATIC FUNCTION PNL; Future documented in this encounter [facility] documented as of this encounter (statuses as of 07/23/2021) [address]26-2007 History of Past illness Narrative* Problem Noted Date Resolved Date Open wound of breast, complicated 12/30/2006 10/19/2012 documented as of this encounter (statuses as of 07/23/2021) [address]26-2007 History of Past illness Narrative* Problem Noted Date Resolved Date Open wound of breast, complicated 12/30/2006 10/19/2012 documented as of this encounter (statuses as of 08/31/2021) [facility] History of Past illness Narrative* Problem Noted Date Resolved Date Open wound of breast, complicated 12/30/2006 10/19/2012 documented as of this encounter (statuses as of 09/19/2021) [facility] History of Past illness Narrative* Problem Noted Date Resolved Date Open wound of breast, complicated 12/30/2006 10/19/2012 documented as of this encounter (statuses as of 12/31/2021) [facility] History of Past illness Narrative* Problem Noted Date Resolved Date Open wound of breast, complicated 12/30/2006 10/19/2012 documented as of this encounter (statuses as of 01/05/2022) [facility] History of Past illness Narrative* Problem Noted Date Resolved Date Open wound of breast, complicated 12/30/2006 10/19/2012 documented as of this encounter (statuses as of 03/24/2022) [address]2007 History of Past illness Narrative* Problem Noted Date Resolved Date Open wound of breast, complicated 12/30/2006 10/19/2012 documented as of this encounter (statuses as of 04/20/2022) [address]2007 History of Past illness Narrative* Problem Noted Date Resolved Date Open wound of breast, complicated 12/30/2006 10/19/2012 documented as of this encounter (statuses as of 05/11/2022) [address] History of Past illness Narrative* Problem Noted Date Resolved Date Open wound of breast, complicated 12/30/2006 10/19/2012 documented as of this encounter (statuses as of 06/24/2022) [facility] of Past illness Narrative* Problem Noted Date Diagnosed Date Resolved Date Open wound of breast, complicated 12/30/2006 10/19/2012 documented as of this encounter (statuses as of 09/13/2022) [facility] of Past illness Narrative* Problem Noted Date Diagnosed Date Resolved Date Open wound of breast, complicated 12/30/2006 10/19/2012 documented as of this encounter (statuses as of 09/20/2022) [facility] History of Past illness Narrative* Problem Noted Date Diagnosed Date Resolved Date Open wound of breast, complicated 12/30/2006 10/19/2012 documented as of this encounter (statuses as of 11/17/2022) [address] History of Past illness Narrative* Problem Noted Date Diagnosed Date Resolved Date Open wound of breast, complicated 12/30/2006 10/19/2012 documented as of this encounter (statuses as of 12/14/2022) [facility]LEAH (generalized anxiety disorder)- Primary Generalized anxiety disorder [facility] ALEAH (generalized anxiety disorder) Generalized anxiety disorder Anxiety Anxiety state, unspecified Depression, unspecified depression type Mixed hyperlipidemia [facility] Diagnosis ALEAH (generalized anxiety disorder)- Primary Generalized anxiety disorder [facility] Diagnosis Encounter for screening mammogram for breast cancer- Primary ALEAH (generalized anxiety disorder) Generalized anxiety disorder Pure hypercholesterolemia Wellness examination Lipid screening Screening for lipoid disorders Screening for deficiency anemia Screening for other and unspecified deficiency anemia documented in this encounter [facility] note* Diagnosis Anxiety Anxiety state, unspecified Depression, unspecified depression type Mixed hyperlipidemia documented in this encounter [facility] note* Diagnosis ALEAH (generalized anxiety disorder) Generalized anxiety disorder documented in this encounter [facility] note* Diagnosis Mixed hyperlipidemia- Primary ALEAH (generalized anxiety disorder) Generalized anxiety disorder Screening for deficiency anemia Screening for other and unspecified deficiency anemia Wellness examination documented in this encounter [facility] note* Diagnosis Tobacco abuse Tobacco use disorder documented in this encounter [facility] note* Diagnosis Anxiety Anxiety state, unspecified Depression, unspecified depression type documented in this encounter [facility] note* Diagnosis ALEAH (generalized anxiety disorder) Generalized anxiety disorder documented in this encounter [facility] for referral (narrative)* Diagnostic Procedure Only (Routine) - Pending Review Specialty Diagnoses / Procedures Referred By Edward govea Referred To Contact [facility] Diagnoses Encounter for screening mammogram for breast cancer Procedures ALEM SCREENING SCREENING MAMMOGRAPHY BI 2-VIEW BREAST INC [facility] Grover Alberts MD [address] [place] [address] [facility] [address] [place] [address] Referral ID Status Reason Start Date Expiration Date Visits Requested Visits Authorized [id number] Pending Review Auto-Generat ed Referral 03/24/2022 04/23/2023 1 1 [facility] Summary Purpose Family History No Family History Records FoundNo Family History Records FoundNo Family History Records FoundNo Family History Records Found Advance Directives No Advanced Directives Records FoundNo Advanced Directives Records FoundNo Advanced Directives Records FoundNo Advanced Directives Records Found Additional Source Comments INFORMATION SOURCE (unrecogn ized section and content) DATE CREATED AUTHOR AUTHOR'S ORGANIZ ATION 09/25/2020 [facility] DATE CREATED AUTHOR AUTHOR'S ORGANIZ ATION 09/20/2022 [facility] DATE CREATED AUTHOR AUTHOR'S ORGANIZ ATION 03/30/2023 [facility] nter Source Comments (unrecognize d section and content) In the event this informatio n is protected by the Federal Confidentiality of Alcohol and Drug Abuse Patient Records regulations: The Federal rules restrict any use of the information to criminally investigate or prosecute any alcohol or drug abuse patient.[facility] event this information is protected by the Federal Confidentiality of Alcohol and Drug Abuse Patient Records regulations: The Federal rules restrict any use of the information to criminally investigate or prosecute any alcohol or drug abuse patient.[facility] the event this information is protected by the Federal Confidentiality of Alcohol and Drug Abuse Patient Records regulations: The Federal rules restrict any use of the information to criminally investigate or prosecute any alcohol or drug abuse patient.[facility] the event this information is protected by the Federal Confidentiality of Alcohol and Drug Abuse Patient Records regulations: The Federal rules restrict any use of the information to criminally investigate or prosecute any alcohol or drug abuse patient.[facility] the event this information is protected by the Federal Confidentiality of Alcohol and Drug Abuse Patient Records regulations: The Federal rules restrict any use of the information to criminally investigate or prosecute any alcohol or drug abuse patient.[facility] the event this information is protected by the Federal Confidentiality of Alcohol and Drug Abuse Patient Records regulations: The Federal rules restrict any use of the information to criminally investigate or prosecute any alcohol or drug abuse patient.[facility] the event this information is protected by the Federal Confidentiality of Alcohol and Drug Abuse Patient Records regulations: The Federal rules restrict any use of the information to criminally investigate or prosecute any alcohol or drug abuse patient.[facility] the event this information is protected by the Federal Confidentiality of Alcohol and Drug Abuse Patient Records regulations: The Federal rules restrict any use of the information to criminally investigate or prosecute any alcohol or drug abuse patient.[facility] the event this information is protected by the Federal Confidentiality of Alcohol and Drug Abuse Patient Records regulations: The Federal rules restrict any use of the information to criminally investigate or prosecute any alcohol or drug abuse patient.[facility] the event this information is protected by the Federal Confidentiality of Alcohol and Drug Abuse Patient Records regulations: The Federal rules restrict any use of the information to criminally investigate or prosecute any alcohol or drug abuse patient.[facility] the event this information is protected by the Federal Confidentiality of Alcohol and Drug Abuse Patient Records regulations: The Federal rules restrict any use of the information to criminally investigate or prosecute any alcohol or drug abuse patient.[facility] the event this information is protected by the Federal Confidentiality of Alcohol and Drug Abuse Patient Records regulations: The Federal rules restrict any use of the information to criminally investigate or prosecute any alcohol or drug abuse patient.[facility] the event this information is protected by the Federal Confidentiality of Alcohol and Drug Abuse Patient Records regulations: The Federal rules restrict any use of the information to criminally investigate or prosecute any alcohol or drug abuse patient.[facility] the event this information is protected by the Federal Confidentiality of Alcohol and Drug Abuse Patient Records regulations: The Federal rules restrict any use of the information to criminally investigate or prosecute any alcohol or drug abuse patient.[facility] Care Teams (unrecognized sec tion and content) [employer] Traffic [employer] Relationship Specialty Start Date End Date Grover Alberts MD [address] [place] [address] PCP - General Family Practice 07/23/21 Air Traffic Controller Relationship Specialty Start Date End Date Grover Alberts MD [address] [place], [place] [id number] [phone] PCP - General Family Practice 07/23/21 Air Traffic Controller Relationship Specialty Start Date End Date Grover Alberts MD [address] [place] [address] PCP - General Family Practice 07/23/21 Air Traffic Controller Relationship Specialty Start Date End Date Grover Alberts MD [address] [place] [address] PCP - General Family Medicine 07/23/21 Air Traffic Controller Relationship Specialty Start Date End Date Grover Alberts MD [address] [place] [address] PCP - General Family Medicine 07/23/21 Air Traffic Controller Relationship Specialty Start Date End Date Grover Alberts MD [address] [place] [address] PCP - General Family Medicine 07/23/21 Air Traffic Controller Relationship Specialty Start Date End Date Grover Alberts MD [address] [place] [address] PCP - General Family Medicine 07/23/21 Air Traffic Controller Relationship Specialty Start Date End Date Grover Alberts MD [address] [place] [address] PCP - General Family Medicine 07/23/21 Air Traffic Controller Relationship Specialty Start Date End Date Grover Alberts MD [address] [place] [address] PCP - General Family Medicine 07/23/21 Air Traffic Controller Relationship Specialty Start Date End Date Grover Alberts MD [address] [place] [address] PCP - General Family Medicine 07/23/21 Air Traffic Controller Relationship Specialty Start Date End Date Grover Alberts MD [address] [place] [address] PCP - General Family Medicine 07/23/21 Juan Lester [address] [place] [address] STITCH SEPARATOR 09/14/22 Air Traffic Controller Relationship Specialty Start Date End Date Grover Alberts MD [address] [place], [place] [id number] PCP - General Family Medicine 07/23/21 Juan Lester [address] [place] [address] STITCH SEPARATOR 09/14/22 Air Traffic Controller Relationship Specialty Start Date End Date Grover Alberts MD [address] [place], [place] [id number] PCP - General Family Medicine 07/23/21 Juan Lester [address] [place], [place] [id number] STITCH SEPARATOR 09/14/22 Reason for Visit (unrecogniz ed section and content) Reason Comments 6 Month Exam f/u on multiple medi bernadine problems no concerns Reason Onset Date Comments Refill Request 12/31/2021 Reason Comments Wellness Reason Comments Returning Patient's Call Reason Onset Date Comments Refill Request 05/10/2022 Reason Onset Date Comments Refill Request 06/23/2022 Reason Comments 6 Month Exam Reason Comments Refill Request Reason Onset Date Comments Refill Request 12/13/2022 FOR RECORDS PERTAINING TO PATIENTS WHO ARE OR HAVE BEEN ENROLLED IN A CHEMICAL DEPENDENCY/SUBSTANCEABUSE PROGRAM, SOME INFORMATION MAY BE OMITTED. This clinical summary was aggregated from multiple sources. Caution should be exercised in using it in the provision of clinical care. This summary normalizes information from multiple sources, and as a consequence, information in this document may materially change the coding, format and clinical context of patient data. In addition, data may be omitted in some cases. CLINICAL DECISIONS SHOULD BE BASED ON THE PRIMARY CLINICAL RECORDS. [facility] [employer] [place] [facility] provides no warranty or guarantee of the accuracy or completeness of information in this document.
== END | disposition home or self-care (01) ==
PROVIDERS: PCP Family Medicine; Referring Provider Family Medicine; Visit Provider Family Medicine
DX: R59.0 Localized enlarged lymph nodes (principal)
CPT/HCPCS: 76536

== ENCOUNTER → 2023-06-21 | Outpatient (CLI) | payer OTHER, SELFPAY ==
--- NOTE | 2023-06-21 13:53 | BI_ITS ---
MAMMOGRAPHY - BILATERAL SCREENING REASON FOR EXAM: Female, 63 years old. Routine annual screening examination. PERTINENT HISTORY: Personal history of breast cancer. Prior right lumpectomy with chemotherapy and radiation therapy. TECHNIQUE: Digital bilateral breast carin (3D mammographic acquisition) in the CC and MLO projections. 2-D mediolateral oblique (MLO) and craniocaudad (CC) views of both breasts were obtained. CAD: Full Field Digital Mammography with Computer Added Detection was performed. COMPARISON: Comparison is made with prior study June 08, 2022 and November 06, 2020. FINDINGS: Breast Composition: There are scattered areas of fibroglandular density. There are no dominant masses or suspicious calcifications. Once again, the patient is status post lumpectomy in the deep central slightly medial aspect of the right breast with resultant breast deformity and dystrophic postoperative calcification. Surgical clips are also seen in the right axillary region. No other significant abnormalities are identified. There has been no significant change since the prior study. BI/SCRN MAMM (CAD)W/CARIN BILAT IMPRESSION: Stable bilateral screening mammogram. Yearly follow-up mammogram recommended. (A) ASSESSMENT CATEGORY: BIRADS Category 2: Benign. A letter regarding these results will be sent to the patient by the facility within 30 days. Approximately 10% of breast cancers are not detected by mammography. A normal mammogram should not delay biopsy of a clinically suspicious abnormality. [id number] Electronically Signed: Michael Johnson MD at 8:23 EDT ,
== END | disposition home or self-care (01) ==
PROVIDERS: PCP Family Medicine; Referring Provider Family Medicine; Visit Provider Family Medicine
DX: Z12.31 Encounter for screening mammogram for malignant neoplasm of breast (principal)
CPT/HCPCS: 77063; 77067

== ENCOUNTER → 2023-10-07 | Outpatient (CLI) | payer OTHER, SELFPAY ==
[2023-10-07 13:22] LABS: AST(SGOT) 25 U/L (15-37); Alanine Aminotransfer ALT/SGPT 18 U/L (13-56); Albumin, Serum 3.6 g/dL (3.2-5.0); Alkaline Phosphatase 100 U/L (45-117); Bilirubin, Direct 0.08 mg/dL (0.00-0.30); Cholesterol 168 mg/dL (200); Globulin 3.9 g/dL (2.2-4.2); High Density Lipoprotein 60 mg/dL; Protein, Total 7.5 g/dL (6.4-8.2); Triglycerides 50 mg/dL; Very Low Density Lipoprotein 10 mg/dL (5-40)
== END | disposition home or self-care (01) ==
LOC: LAB 12:06
PROVIDERS: PCP Family Medicine; Referring Provider Family Medicine; Visit Provider Family Medicine
DX: E78.2 Mixed hyperlipidemia (principal)
CPT/HCPCS: 36415; 80061; 80076

== ENCOUNTER → 2024-07-23 | Outpatient (CLI) | payer MEDICARE, SELFPAY ==
--- NOTE | 2024-07-23 13:55 | BI_ITS ---
EXAM: SCRN MAMM (CAD)W/CARIN BILAT DATE: 07/23/2024 CLINICAL HISTORY: F, Age 64 y/o , SCREENING History of right breast cancer. She had a lumpectomy with radiation therapy and chemotherapy. BREAST CANCER RISK ASSESSMENT: Has not been calculated. TECHNIQUE: Bilateral screening digital breast tomosynthesis with 2D and 3D images. Computer aided detection. COMPARISON: Prior exam(s) dated 06/21/2023 and 06/08/2022. FINDINGS: TISSUE DENSITY: The breast tissue is composed of scattered area of fibroglandular density. Bilateral Breast Mammographic Findings: Architectural distortion, increased density, a surgical clip, and dystrophic type calcifications are seen in superior medial aspect of the right breast at the post lumpectomy post radiation site. This area appears stable. Benign-appearing macrocalcifications and round microcalcifications are seen elsewhere in the breasts. Surgical clips are seen in the axillary region. The right breast is smaller in comparison to the left breast compatible with the patient's history of prior lumpectomy. This is a stable finding. There is no mammographic abnormality identified to suggest new or recurrent malignancy. Benign round calcifications are seen left breast. No suspicious masses, suspicious clustered microcalcifications, architectural distortion or secondary sign of malignancy is identified in the left breast. BI/SCRN MAMM (CAD)W/CARIN BILAT IMPRESSION: OVERALL FINAL ASSESSMENT: BIRADS 2 BENIGN FINDING RECOMMENDATION: Routine annual follow-up in 1 Year A letter with findings and recommendations will be mailed to the patient. Reading Location: [id number]
== END | disposition home or self-care (01) ==
PROVIDERS: PCP Family Medicine; Referring Provider Family Medicine; Visit Provider Family Medicine
DX: Z12.31 Encounter for screening mammogram for malignant neoplasm of breast (principal)
CPT/HCPCS: 77063; 77067